=== PATIENT | male | born 1980 | race Caucasian/White ===

== ENCOUNTER → 2016-06-24 | Outpatient (CLI) | payer OTHER, MEDICAID ==
--- NOTE | 2016-06-24 16:38 | MR ---
MRI Lumbar Spine (Without Contrast) History: Chronic pain, ankylosing spondylitis, radiculopathy, evaluate for epidural steroid injection , G 89.4, M 45.6, M 54.10, M 54.5. Technique: Sagittal and axial T1 and T2 second echo imaging with fat suppression. Sagittal STIR image s. Comparison: none Findings: There are small areas of bone marrow edema involving the anterior superior intact corners o f vertebral bodies T12 through L5, consistent with Romanus lesions of ankylosing spondylitis. There i s bilateral sacroiliitis. Lumbar alignment is anatomic. The lumbar canal is congenitally normal in si ze. The conus medullaris occurs at L1 and appears normal. All neural foramen are widely patent. All d isk spaces maintain normal height and hydration. Posterior disk margins are normal at all levels. Fac et joints are normal. Impression: Findings consistent with ankylosing spondylitis.
== END ==
LOC: FIMAGING 13:05
PROVIDERS: ATTEND Registered Nurse
DX: M45.6 Ankylosing spondylitis lumbar region (principal); M54.10 Radiculopathy, site unspecified; M54.5 Low back pain